=== PATIENT | male | born 1965 ===

== ENCOUNTER 2020-04-08 18:47 | Emergency (ER) | payer BC ==
[~2020-04-08] VITALS: Ht 175.3 cm; Wt 93.2 kg
[2020-04-08] MEDS ORDERED: NEOSPORIN OINT. PKT 1 PACKET ONE (19:09)
[2020-04-08 19:27] LABS: BASOPHILS # (AUTO) 0.08 x10^3/uL (0-0.1); BASOPHILS % (AUTO) 1 % (0-1); EOSINOPHILS # (AUTO) 0.13 x10^3/uL (0-0.4); EOSINOPHILS % (AUTO) 1 % (1-7); LYMPHOCYTES # (AUTO) 1.31 x10^3/uL (1-3.4); LYMPHOCYTES % (AUTO) 12 % (22-44); MD NO; MEAN CORPUSCULAR HEMOGLOBIN 31.1 pg (27.5-34.5); MEAN CORPUSCULAR HGB CONC 33.8 g/dL (33.2-36.2); MEAN CORPUSCULAR VOLUME 92.1 fL (81-97); MEAN PLATELET VOLUME 7.3 fL (7.4-10.4); MONOCYTES # (AUTO) 0.81 x10^3/uL (0.2-0.8); MONOCYTES % (AUTO) 8 % (2-9); NEUTROPHILS # (AUTO) 8.37 x10^3/uL (1.8-6.8); NEUTROPHILS % (AUTO) 78 % (42-75); PLATELET COUNT 279 x10^3/uL (130-400); RED BLOOD COUNT 4.66 x10^6/uL (4.38-5.82); RED CELL DISTRIBUTION WIDTH 12.7 % (9.4-14.8)
[2020-04-08] MEDS ORDERED: SODIUM CHLORIDE 0.9% 1,000ML IVBOLUS ONE (19:30)
[2020-04-08] MEDS ORDERED: AMPICILLIN/SULBACTAM 3 GM in SODIUM CHLORIDE 0.9% 100 ML IV ONE (19:30)
[2020-04-08 19:35] LABS: ALBUMIN 3.5 g/dL (3.4-5.0); ANION GAP 6 mmol/L (5-15); CALCIUM 9.1 mg/dL (8.5-10.1); CHLORIDE 109 mmol/L (98-107); CREATININE 1.02 mg/dL (0.7-1.3)
[2020-04-08 21:00] VITALS: BP 157/88
--- NOTE | 2020-04-08 21:11 | NUR ---
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 D/C INSTRUCTIONS, MEDS & F/U APPT RV'WD WITH PT, HE VERBALIZES UNDERSTANDING. RX GIVEN X2. INSTRUCTED PT TO RETURN TO ED FOR ANY WORSENING S/S OF INFECTION. PT AMBULATED OUT OF ED WITHOUT DIFFICULTY.
== END 2020-04-08 21:08 ==
LOC: ED 20:40
DX: L03.114 Cellulitis of left upper limb (principal)
CPT/HCPCS: 36415; 80048; 82040; 85025; 96365; 99284; J0295; J7030